=== PATIENT | female | born 1995 | race Two or more races ===

== ENCOUNTER → 2024-12-07 | Emergency (ER) | payer OTHER ==
[~2024-12-07] VITALS: Ht 152.4 cm; Wt 63.5 kg
[~2024-12-07] MED LIST: CEFTRIAXONE SODIUM 1,000 MG VIAL IM STA; CEFTRIAXONE SODIUM 1,000 MG VIAL ONE
== END | disposition home or self-care (01) ==
LOC: ER 19:39
DX: L03.115 Cellulitis of right lower limb (principal)

== ENCOUNTER 2024-12-17 19:39 | Emergency (ER) | payer OTHER ==
[~2024-12-17] VITALS: Ht 152.4 cm; Wt 63.5 kg
[2024-12-17 20:48] VITALS: BP 111/65; O2SAT 100
== END 2024-12-17 21:23 | disposition home or self-care (01) ==
LOC: ER 19:50
DX: L97.818 Non-pressure chronic ulcer of other part of right lower leg with other specified severity (principal)